=== PATIENT | male | born 1955 | race Caucasian/White ===

== ENCOUNTER 2016-09-07 07:00 | Inpatient (IN) | payer OTHER ==
[~2016-09-07] VITALS: Ht 165.1 cm; Wt 73.3 kg
[2016-10-04 08:44] VITALS: BMI 25.1
[2016-10-05] VITALS (22 sets, daily range): BP systolic 82–145; BP diastolic 53–92; PULSE 59–95; RESP 13–25; Ht 165.1 cm; Wt 73.3 kg
[2016-10-05] MEDS ORDERED: LACTATED RINGER'S 1,000 ML IV* SCH (06:00)
[2016-10-05] MEDS ORDERED: CEFAZOLIN 2 GM/50 ML (PMX) 50 ML IVPB SCH (06:00)
[2016-10-05] MEDS ORDERED: CLON-429 PO (06:27)
[2016-10-05] MEDS ORDERED: SERT50TA PO (06:27)
[2016-10-05] MEDS ORDERED: TRAM50TA2 PO (06:27)
[2016-10-05] MEDS ORDERED: FLUT9.9S NASAL (06:27)
[2016-10-05] MEDS ORDERED: LISI20TA11 PO (06:27)
[2016-10-05 06:49] LABS: BASOPHILS % 0.5 % (0.0-2.0); EOSINOPHILS % 0.8 % (0.0-7.0); HEMATOCRIT 43.5 % (42.0-52.0); HEMOGLOBIN 15.1 g/dl (14.0-18.0); LYMPHOCYTES % 34.5 % (15.0-51.0); MEAN CORPUSCULAR HEMOGLOBIN 32.7 pg (29.0-33.0); MEAN CORPUSCULAR HGB CONC 34.7 g/dl (32.0-37.0); MEAN CORPUSCULAR VOLUME 94.3 fl (82.0-101.0); MEAN PLATELET VOLUME 8.4 fl (7.4-10.4); MONOCYTE # 0.6 10^3/ul (0.3-0.9); MONOCYTES % 9.8 % (0.0-11.0); NEUTROPHIL # 3.2 10^3/ul (1.6-7.5); NEUTROPHILS % 54.4 % (39.0-77.0); PLATELET COUNT 207 10^3/UL (140-440); RED BLOOD COUNT 4.61 10^6/ul (4.70-6.10); RED CELL DISTRIBUTION WIDTH 12.4 % (11.5-14.5); UNCORRECTED WBC 5.9 10^3/ul (4.8-10.8); WHITE BLOOD COUNT 5.9 10^3/ul (4.8-10.8)
[2016-10-05 06:51] LABS: INR 0.91; PROTIME 12.2 Sec (12.2-14.2)
[2016-10-05 06:52] LABS: PARTIAL THROMBOPLASTIN TIME 28.5 Sec (25.0-35.0)
[2016-10-05] MEDS ORDERED: ONDANSETRON 4 MG INJ IV PRN ×2 (07:00→09:00)
[2016-10-05] MEDS ORDERED: CYCLOBENZAPRINE 10 MG TAB PO PRN (07:00)
[2016-10-05] MEDS ORDERED: DIPHENHYDRAMINE 50 MG INJ IV PRN (07:00)
[2016-10-05] MEDS ORDERED: NALOXONE (0.4 MG/ML) INJ IV PRN (07:00)
[2016-10-05] MEDS ORDERED: DIPHENHYDRAMINE 25 MG CAP PO PRN (07:00)
[2016-10-05] MEDS ORDERED: CEPASTAT LOZENGE MT PRN (07:00)
[2016-10-05] MEDS ORDERED: LIDOCAINE 2% (SDV) 5 ML INJ ONE (07:00)
[2016-10-05] MEDS ORDERED: OXYCODONE/ACETAMINOPHEN (10/325) TAB PO PRN (07:00)
[2016-10-05] MEDS ORDERED: PROPOFOL 20 ML ONE (07:00)
[2016-10-05] MEDS ORDERED: CEFAZOLIN 1 GM INJ ONE ×2 (07:00→07:02)
[2016-10-05] MEDS ORDERED: BISACODYL 10 MG SUPP PR PRN (07:00)
[2016-10-05] MEDS ORDERED: AL HYDROX/MG HYDROX/SIMETH 30 ML CUP PO PRN (07:00)
[2016-10-05] MEDS ORDERED: ACETAMINOPHEN 325 MG TAB PO PRN (07:00)
[2016-10-05] MEDS ORDERED: ONDANSETRON 4 MG INJ ONE (07:00)
--- NOTE | 2016-10-05 07:00 | HPN ---
Date/Time of Note Date/Time of Note DATE: 10/05/16 TIME: 07:00 Interval H&P Admission Note Pt. seen H&P reviewed: No system changes MARIFER SANCHEZ MD Oct 05, 2016 07:00
[2016-10-05] MEDS ORDERED: BUPIVACAINE 0.25%/EPI (SDV) 30 ML INJ ONE ×2 (07:02→08:57)
[2016-10-05] MEDS ORDERED: SURGIFOAM POWDER 1 GM KIT ONE ×2 (07:02→08:57)
[2016-10-05] MEDS ORDERED: HEPARIN 1000 UNITS/ML 10 ML INJ ONE (07:02)
[2016-10-05] MEDS ORDERED: GELATIN SIZE 100 SPONGE ONE (07:02)
[2016-10-05] MEDS ORDERED: THROMBIN 5000 UNIT VIAL ONE ×2 (07:02→08:58)
[2016-10-05] MEDS ORDERED: CA CHLORIDE 10% 10 ML SYRINGE ONE (07:02)
[2016-10-05 07:14] LABS: CONDITION 1
[2016-10-05 07:27] LABS: ADD UMIC NO; URINE BILIRUBIN (Dip) NEGATIVE (NEGATIVE); URINE BLOOD (Dip) NEGATIVE (NEGATIVE); URINE COLOR LT. YELLOW (YELLOW); URINE GLUCOSE (Dip) NEGATIVE (NEGATIVE); URINE KETONES (Dip) NEGATIVE (NEGATIVE); URINE LEUKOCYTE ESTERASE (Dip) NEGATIVE (NEGATIVE); URINE NITRITE (Dip) NEGATIVE (NEGATIVE); URINE TOTAL PROTEIN (Dip) NEGATIVE (NEGATIVE); URINE UROBILINOGEN (Dip) 0.2 E.U./dL (0.1-1.0)
[2016-10-05] MEDS ORDERED: HYDROmorphONE 2 MG/ML SYG ONE (07:54)
[2016-10-05] MEDS ORDERED: LABETALOL HCL 20MG INJ ONE (07:54)
[2016-10-05] MEDS ORDERED: ROCURONIUM 50 MG INJ ONE ×2 (08:25→09:04)
[2016-10-05] MEDS ORDERED: FENTAnyl 50 MCG/ML VIAL IV PRN ×2 (09:00)
[2016-10-05] MEDS ORDERED: HYDROmorphONE (0.2 MG/ML) 10ML SYG IV PRN ×3 (09:00)
[2016-10-05] MEDS ORDERED: EPHEDrine SULFATE 50 MG/5 ML SYG IV PRN (09:00)
[2016-10-05] MEDS ORDERED: LABETALOL HCL 20MG INJ IV PRN (09:00)
[2016-10-05] MEDS ORDERED: hydrALAzine 20 MG INJ IV PRN (09:00)
[2016-10-05] MEDS ORDERED: MEPERIDINE 25 MG INJ IV PRN (09:00)
[2016-10-05] MEDS ORDERED: EPHEDrine SULFATE 50 MG/5 ML SYG ONE (09:04)
[2016-10-05] MEDS ORDERED: DEXAMETHASONE 4 MG/ML 1 ML INJ ONE (09:04)
--- NOTE | 2016-10-05 11:04 | OPR ---
DATE OF OPERATION: 10/05/2016 PREOPERATIVE DIAGNOSIS: L5 to S1 degenerative anterolisthesis and stenosis with radiculopathy. POSTOPERATIVE DIAGNOSIS: L5 to S1 degenerative anterolisthesis and stenosis with radiculopathy. PROCEDURE PERFORMED: 1. Anterior lumbar interbody fusion at L5 to S1. 2. Placement of intervertebral biomechanical device with integral screws. 3. Use of allograft. 4. Use of C-arm fluoroscopy with interpretation without radiologist present. 5. Intraoperative neuromonitoring (1 hour 30 minutes). 6. Placement of NuShield device. IMPLANTS: 1. Centinel Stalif anterior lumbar body cage 42 width, 13 height, 12-degree lordosis with screws. 2. Fibergraft. PRIMARY SURGEON: Erasmo Méndez MD COSURGEON: Kris Galvez MD NEED FOR COSURGEON: A cosurgeon was required in order to access the anterior spine. SECOND AIRCRAFT STRUCTURAL REPAIRER: Nelia Chang PA-C. FINDINGS: Neuromonitoring at the start of the case revealed bilateral L5 amplitude down to 40%, liliya ateral S1 amplitude down to 30%. At the end of the case, nerve signals returned to normal. The pat ient had significant disk collapse with listhesis at L5 to S1 with resultant stenosis. ESTIMATED BLOOD LOSS: Per Dr. Galvez. DRAINS: None. SPECIMENS: L5 to S1 disk was sent to pathology. COMPLICATIONS OF PROCEDURE: None. ANESTHESIOLOGIST: Dr. Stewart. TYPE OF ANESTHESIA: General. INDICATIONS FOR PROCEDURE: This is a 60-year-old gentleman with lumbosacral radiculopathy in the se tting of grade I degenerative anterolisthesis and stenosis. He had failed nonoperative measures; th erefore, I recommended proceeding with the above-mentioned surgery. Preoperatively, we discussed th e risks, benefits, and alternatives. He understood and wished to proceed. DESCRIPTION OF PROCEDURE IN DETAIL: The patient was identified in the preoperative holding area, [facility], taken to the operating room, where he was successfully placed under general an esthesia. Neuromonitoring leads were placed, sequential compressive devices were applied, Hampton cat heter was introduced. Neuromonitoring was utilized during this stage of the procedure for 1.5 hours to include SSEP, MEP, and EMG. Start time was 8:00 a.m., closure time was 9:30 a.m. He was placed on the operating table in supine position. All bony prominences were well padded. The abdomen was then prepped and draped in the usual sterile fashion. Arterial line was also placed as was an orog astric tube. Dr. Galvez performed an anterior approach from the left to the spine. He will dictate the approa ch separately. Once he had identified the spine, I placed a bent spinal needle into the L5 to S1 le ana. Once this was placed, I took AP and lateral images to confirm the correct level. Next, I perf ormed a radical diskectomy using curettes, Kerrison punches and pituitary rongeurs. I was able to r educe the spine and improve the alignment. I placed the appropriate size trials and chose the appro priate size graft height. I then took the PEEK cage within which I placed allograft and I impacted the intervertebral biomechanical device into the L5 to S1 level to complete the anterior lumbar inte rbody fusion. I then placed 3 integral screws into the cage. Fibergraft was placed within the cage . Once this was done, I took AP and lateral images and I was happy with placement of the hardware a nd alignment of the spine. Dr. Galvez then placed a NuShield device and proceeded to close the wound in layers and he will d ictate the closure separately. Upon completion, the patient will be transferred to the operating ta ble in prone position for stage 2, which will be dictated separately. There were no apparent compli cations during stage 1. Lap, sponge, and instrument counts were correct x2. Dictated By: ERASMO KRUSE/YANDEL Conf#: [id number] DID#: [id number]
[2016-10-05] MEDS: FENTAnyl 50 MCG/ML VIAL IV PRN ×2 (11:19→11:27)
--- NOTE | 2016-10-05 11:23 | RADRPT ---
PROCEDURE: XR Abdomen. CLINICAL INDICATION: Instrument count. Postop spine surgery. TECHNIQUE: AP supine abdomen x-ray. COMPARISON: Intraoperative lumbar spine radiographs done earlier the same day. FINDINGS: The bowel gas pattern is normal. There is no evidence of obstruction. There are no abnormal calcifications overlying the urinary tracts. There are degenerative changes of the spine. There has been prior lower lumbar spine surgery with h ardware noted. There is a Hampton catheter in the bladder. There is no other abnormal radiopaque for eign body. IMPRESSION: 1. Postoperative changes of the lower lumbar spine. 2. Hampton catheter in the bladder. 3. No other radiopaque foreign body. RPTAT: QQ .Jose Martínez MD, MD Date Time Electronically viewed and signed by .Jose Martínez MD, on 10/05/2016 11:23 .R/
[2016-10-05] MEDS: HYDROmorphONE 0.2 MG/ML PCA IV SCH ×2 (11:32→18:46)
--- NOTE | 2016-10-05 11:54 | OPR ---
DATE OF OPERATION: 10/05/2016 PREOPERATIVE DIAGNOSES: Status post anterior lumbar interbody fusion at L5-S1 for listhesis and stenosis. POSTOPERATIVE DIAGNOSES: Status post anterior lumbar interbody fusion at L5-S1 for listhesis and stenosis. OPERATION PERFORMED: 1. Bilateral pedicle screw placement at L5 and S1. 2. Posterolateral fusion at L5-S1. 3. Bone marrow aspiration from the L5 pedicle and vertebral body. 4. Use of allograft. 5. Intraoperative neuromonitoring (1 hour 15 minutes). IMPLANTS: 1. Pinnacle Lora pedicle screws 6.5 x 40 x 4 45 mm darlin on the left and 45 mm darlin on the right. 2. Allograft sponges. PRIMARY SURGEON: Erasmo Méndez MD REAL TIME ANALYST: JANNETTE Combs NEED FOR MAINTENANCE MECHANIC TECHNICIAN: During this spinal surgical procedure, my executive administrative assistant was used to retract and protect the spinal nerves and dural sac. My executive administrative assistant also employed the suction catheters to evacuate blood from the surgical field to improve visualization of the neural structures. The executive administrative assistant was medically necessary to facilitate the completion of the surgery in a safe and expeditious manner. State of [place] regulations, as well as hospital bylaws, preclude the use of non-licensed health care personnel, such as operating room technicians, to perform these functions. FINDINGS: At the start and the end of the case, nerve signals remained normal. ESTIMATED BLOOD LOSS: Less than 10 mL. DRAINS: None. SPECIMENS: None. COMPLICATIONS OF PROCEDURES: None. ANESTHESIOLOGIST: Dr. Stewart TYPE OF ANESTHESIA: General. INDICATIONS FOR PROCEDURE: This is a 60-year-old gentleman with lumbosacral spondylolisthesis. He completed stage I, which is dictated separately, which was anterior fusion and now presents for stage II. Preoperatively, risks and alternatives were discussed. DESCRIPTION OF PROCEDURE IN DETAIL: After completion of stage I, which is dictated separately, the patient was placed in the operating table in prone position over a Luis frame. All bony prominences were well padded. Neuromonitoring was utilized for this stage of the procedure to include SSEP, MEP, and EMG. This was performed by Receptor. Start time was 10:00 a.m., closure time was 11:15 a.m. The back was prepped, draped in usual sterile fashion. I injected the incision sites with Marcaine and epinephrine. Incision was made parasagittally over the L5 and S1 pedicles. Jamshidi needles were placed. Bone marrow aspiration was performed from the L5 pedicle and vertebral body in the left. Guidewires were then placed followed by the appropriate size pedicle screws bilaterally at L5 and S1. The screws were then stimulated and there was no evidence of cortical breach. I then placed the appropriate sized rods with set screw placement with tightening per manufacture' s specifications. The extension tabs were then removed. I prepared the posterolateral gutters and placed the allograft into the posterolateral region for posterolateral fusion at L5-S1. Once this was done, final AP and lateral images were obtained, and I was happy with placement of hardware and the alignment of the spine. The wound was then copiously irrigated. The deep fascia was closed with #1 Vicryl stitch. I closed subcutaneous tissue with a 2- 0 Vicryl stitch. Dermabond was then applied. The patient was then awakened from anesthesia and taken to recovery in stable condition. Lap, sponge, and instrument counts were correct x2. There were no apparent complications during the procedure. The patient will be admitted to the orthopedic li for routine postoperative care to include pain control, neurovascular checks, antibiotics, and physical therapy. Dictated By: ERASMO KRUSE/YANDEL Conf#: [id number] DID#: [id number] MTDD
--- NOTE | 2016-10-05 13:12 | RADRPT ---
PROCEDURE: Intraoperative fluoroscopy. CLINICAL INDICATION: Intraoperative fluoroscopy during lumbar surgery. TECHNIQUE: 10 spot intraoperative fluoroscopic images were provided. The images were reviewed on a high-resolution PACS workstation. COMPARISON: None available FINDINGS: Multiple spot intraoperative fluoroscopic views were provided during lumbar surgery. The images dem onstrate anterior and subsequent posterior lumbar discectomy and fusion at L5-S1. The total fluoros copy time was 143 seconds. IMPRESSION: 1. Multiple spot intraoperative fluoroscopic views during anterior posterior lumbar discectomy and fusion at L5-S1 were provided. 2. Please see operative report of the same day for further information. RPTAT: HGAS .Patrick Hamilton MD, MD Date Time Electronically viewed and signed by .Patrick Hamilton MD, on 10/05/2016 13:11 .S/
--- NOTE | 2016-10-05 13:13 | RADRPT ---
PROCEDURE: Intraoperative fluoroscopy. CLINICAL INDICATION: Intraoperative fluoroscopy during lumbar fusion. TECHNIQUE: 2 spot intraoperative fluoroscopic images were provided. The images were reviewed on a high-resolution PACS workstation. COMPARISON: None available FINDINGS: Multiple spot intraoperative fluoroscopic views were provided during lumbar fusion. The images demo nstrate anterior lumbar interbody fusion at L5-S1. The total fluoroscopy time was 35.9 seconds. IMPRESSION: 1. Multiple spot intraoperative fluoroscopic views during L5-S1 fusion were provided. 2. Please see operative report of the same day for further information. RPTAT: HGAS .Patrick Hamilton MD, Date Time Electronically viewed and signed by .Patrick Hamilton MD, on 10/05/2016 13:12 .S/
[2016-10-05] MEDS: LISINOPRIL 20 MG TAB PO SCH (13:30)
[2016-10-05] MEDS ORDERED: clonAZEPAM 0.5 MG TAB PO PRN (13:30)
--- NOTE | 2016-10-05 13:39 | CONS ---
DATE OF ADMISSION: 10/05/2016 DATE OF CONSULTATION: 10/05/2016 TYPE OF CONSULTATION: Postoperative REFERRING PHYSICIAN: Erasmo Méndez MD Thank you very much for allowing me to evaluate this 60-year-old male who just underwent lumbar back surgery. HISTORICAL EVENTS: As you well know, the patient was last seen by you in July and at that time elected to proceed with surgical intervention as a prior epidural in February did not provide any relief with respect to low back pain. Postoperatively, he is comfortable without cough, wheezing, shortne ss of breath, nausea, vomiting, abdominal or chest pain. PAST MEDICAL HISTORY: 1. Mood disorder/anxiety and depression. 2. Hypertension. 3. History of hemorrhoids. 4. History of syncope. 5. No history of coronary disease or diabetes. MEDICATIONS: Include: 1. Fluticasone 50 mcg 2 sprays in each nostril daily. 2. Lisinopril 20 mg per day. 3. Ultram 50 mg q.6h. p.r.n. 4. Zoloft 50 mg at night. SOCIAL HISTORY: Does not smoke. He does drink some alcohol. Worked in the [employer] as a [employer]. PHYSICAL EXAMINATION: GENERAL: [place] male in no acute distress. VITAL SIGNS: Blood pressure 92/70, pulse 70, respirations are 20. He was afebrile. EYES: Extraocular muscles were full. NOSE, MOUTH AND THROAT: Normal. NECK: Supple. There was no jugular venous distention, thyroid enlargement or adenopathy. Carotids 2+. LUNGS: Clear. HEART: Rhythm regular. ABDOMEN: Nontender. Liver and spleen were not palpable. No masses or tenderness were noted. EXTREMITIES: No edema. Calves nontender. IMPRESSION: 1. Stable postop lumbar back surgery. 2. History of hypertension. We will continue his DAVIS and observed blood pressures throughout his a dmission. 3. We will observe daily for signs and symptoms of thromboembolic disease. 4. We will pay close attention to his mood disorder. Continue Zoloft at night and Klonopin as need ed. Dictated By: RUSTY SINGH MD MR/NTS Conf#: [id number] DID#: [id number]
[2016-10-05] MEDS: DOCUSATE SODIUM 100 MG CAP PO SCH ×2 (13:46→21:28)
[2016-10-05] MEDS: ASCORBIC ACID 500 MG TAB PO SCH (14:10)
[2016-10-05] MEDS: D5W-0.45 NACL + KCL 20 MEQ 1,000 ML IV SCH ×2 (14:10→16:59)
[2016-10-05] MEDS: CEFAZOLIN 1 GM/50 ML (PMX) 50 ML IVPB SCH ×3 (14:10→23:10)
--- NOTE | 2016-10-05 21:18 | OPR ---
DATE OF OPERATION: PREOPERATIVE DIAGNOSIS: Degenerative disk disease, L5-S1. POSTOPERATIVE DIAGNOSIS: Degenerative disk disease, L5-S1. PROCEDURE: Anterior retroperitoneal exposure and interbody fusion at the level of L5-S1. SURGEON: Kris Galvez MD COSURGEON: Erasmo Sanchez MD INFORMED CONSENT: Risks, benefits, complications, alternative therapies explained to the patient, c onsent obtained. Risks and benefits that were explained to the patient included but not limited to bleeding, infection, damage to the bowel, damage to ureter, wound infection, wound dehiscence, DVT, PE, loss of limb, loss of life, need for further surgeries, sexual dysfunction, erectile dysfunction , and others. All questions answered. OPERATIVE TECHNIQUE: The patient was placed in supine position, prepped, and draped in usual steril e fashion. Timeout was called and we started. I made a 6 cm incision in left lower quadrant, oblique fashion. Incision was taken down to the subc utaneous tissue, which was then opened using electrocautery. Next, the anterior rectus sheath was o pened using electrocautery. Retroperitoneal space was entered subsequently. We then proceeded with the placement of a Bookwalter retractor, which retracted the bowel contents to the right and left r ectus muscle to the left. We did the diskectomy and placement of the new cage. Please refer to Dr. Sanchez's dictation for the details of that operation. After all the x-rays were satisfactory re ad by Dr. Sanchez, the needle count and sponge count was correct. There was no evidence of any bl eeding. The wound was irrigated using antibiotic solution. Anterior rectus sheath was closed using #1 Vicryl suture in running fashion. The wound was irrigated again and closed in 2 layers of 2-0 V icryl suture for subcutaneous, and Steri-Strips for the skin. The patient tolerated procedure well. Dictated By: KRIS GALVEZ MD FM/NTS Conf#: [id number] DID#: [id number] CC: ERASMO SANCHEZ MD;*EndCC*
[2016-10-05] MEDS: SERTRALINE 50 MG TAB PO SCH (21:28)
[2016-10-06] MEDS: D5W-0.45 NACL + KCL 20 MEQ 1,000 ML IV SCH ×2 (01:48→12:59)
[2016-10-06] MEDS: HYDROmorphONE 0.2 MG/ML PCA IV SCH ×4 (04:24→23:57)
[2016-10-06 05:57] LABS: POTASSIUM 4.1 mmol/L (3.5-5.1)
[2016-10-06 06:00] LABS: BASOPHILS % 0.2 % (0.0-2.0); CREATININE 0.93 mg/dl (0.61-1.24); HEMATOCRIT 35.5 % (42.0-52.0); HEMOGLOBIN 12.3 g/dl (14.0-18.0); LYMPHOCYTES % 18.9 % (15.0-51.0); MEAN CORPUSCULAR HEMOGLOBIN 33.2 pg (29.0-33.0); MEAN CORPUSCULAR HGB CONC 34.7 g/dl (32.0-37.0); MEAN CORPUSCULAR VOLUME 95.7 fl (82.0-101.0); MEAN PLATELET VOLUME 9.1 fl (7.4-10.4); MONOCYTE # 1.1 10^3/ul (0.3-0.9); MONOCYTES % 9.9 % (0.0-11.0); NEUTROPHIL # 7.7 10^3/ul (1.6-7.5); PLATELET COUNT 192 10^3/UL (140-440); RED CELL DISTRIBUTION WIDTH 12.8 % (11.5-14.5); UNCORRECTED WBC 10.9 10^3/ul (4.8-10.8); WHITE BLOOD COUNT 10.9 10^3/ul (4.8-10.8)
[2016-10-06] MEDS ORDERED: PANTOPRAZOLE 40 MG INJ IV SCH (06:00)
[2016-10-06 06:01] LABS: CALCIUM 8.9 mg/dl (8.4-10.2)
[2016-10-06 06:25] LABS: CONDITION 1
[2016-10-06 06:55] LABS: ALBUMIN 3.3 g/dl (3.3-4.9)
[2016-10-06 06:58] LABS: BILIRUBIN,INDIRECT 1.1 mg/dl (0-1.1); BILIRUBIN,TOTAL 1.1 mg/dl (0.2-1.3); TOTAL PROTEIN 5.6 g/dl (6.1-8.1)
--- NOTE | 2016-10-06 07:04 | CONS ---
DATE OF ADMISSION: 10/05/2016 DATE OF CONSULTATION: REASON FOR CONSULTATION: Spine disease. Thank you, Dr. Méndez, for asking me to see this patient. HISTORY OF PRESENT ILLNESS: This is a -hfnu-[id number] male with a history of degenerative disk disea se who is being admitted to undergo spine fusion. PAST MEDICAL HISTORY: Hypertension, hyperlipidemia. PAST SURGICAL HISTORY: Bilateral hernia repair with mesh. ALLERGIES: NONE. SOCIAL HISTORY: No smoking, drinking or drug use. MEDICATIONS: List reviewed. PHYSICAL EXAMINATION: VITAL SIGNS: Blood pressure is 136/62, pulse is 80, respirations 18, temperature is 98.2. HEENT: Normocephalic, atraumatic. PERRLA. NECK: Supple. No JVD, no carotid bruits. CARDIOVASCULAR: Normal S1, S2. No murmurs, gallops, rubs ____. ABDOMEN: Soft. EXTREMITIES: Warm. IMPRESSION: Degenerative disease at the level of L5-S1. RECOMMENDATIONS: Will proceed with the anterior retroperitoneal exposure and interbody fusion at th e level of L5-S1. Risks, benefits, complications, alternative therapies explained to the patient an d the family. All questions answered. Risks and benefits that were explained to the patient and th e family included but not limited to bleeding, infection, damage to bowel, damage to ureter, retrogr lynette ejaculation, sexual dysfunction, wound infection, wound dehiscence and others. All questions an swered. Dictated By: LEI JUAREZ MD FM/NTS Conf#: [id number] DID#: [id number]
[2016-10-06 07:35] VITALS: BP 131/70; RESP 19
[2016-10-06] MEDS: ASCORBIC ACID 500 MG TAB PO SCH (08:13)
[2016-10-06] MEDS: DOCUSATE SODIUM 100 MG CAP PO SCH ×2 (08:14→20:41)
[2016-10-06] MEDS: LISINOPRIL 20 MG TAB PO SCH (08:14)
[2016-10-06] MEDS: FLUTICASONE 0.05% 16 GM NAS SPRAY NASAL SCH (08:14)
--- NOTE | 2016-10-06 08:35 | CONS ---
Date/Time of Note Date/Time of Note DATE: 10/06/16 TIME: 08:33 Assessment/Plan Assessment/Plan Additional Assessment/Plan 1. Stable postop lumbar back surgery. 2. History of hypertension, well controlled 3. Mood disorder-anxeity, stable Consultation Date/Type/Reason Admit Date/Time Oct 05, 2016 at 05:23 Initial Consult Date Detailed Summary Respiratory: No shortness of breath Cardiovascular: No chest pain, No lightheadedness Gastrointestinal: other (pablo in place) Musculoskeletal: back pain (moderate) Exam/Review of Systems Vital Signs Vitals Vital Signs Date Time Temp Pulse Resp B/P Pulse Ox O2 Delivery O2 Flow Rate FiO2 10/06/16 07:35 98.0 79 19 131/70 98 10/05/16 15:30 Room Air 2.0 Intake and Output 10/05/16 10/05/16 10/06/16 15:00 23:00 07:00 Intake Total 1650 ml 700 ml 2060 ml Output Total 700 ml 1900 ml Balance 950 ml 700 ml 160 ml Exam Neck: No jvd Respiratory: clear to auscultation Cardiovascular: regular rate and rhythm Gastrointestinal: soft, No hepatomegaly, No splenomegaly Extremities: No edema (and no calf tend) Results Result Diagram: 10/06/16 0415 10/06/16 0415 Results 24 hrs Laboratory Tests Test 10/06/16 04:15 Alanine Aminotransferase (ALT/SGPT) 30 Albumin 3.3 Alkaline Phosphatase 32 L Anion Gap 12 Aspartate Amino Transf (AST/SGOT) 34 Basophils # 0.0 Basophils % 0.2 Blood Urea Nitrogen 11 Calcium Level 8.9 Carbon Dioxide Level 27 Chloride Level 102 Creatinine 0.93 Direct Bilirubin 0.00 Eosinophils # 0.0 Eosinophils % 0.0 Glucose Level 103 Hematocrit 35.5 L Hemoglobin 12.3 L Indirect Bilirubin 1.1 Lymphocytes # 2.0 Lymphocytes % 18.9 Magnesium Level 2.0 Mean Corpuscular Hemoglobin 33.2 H Mean Corpuscular Hemoglobin Concent 34.7 Mean Corpuscular Volume 95.7 Mean Platelet Volume 9.1 Monocytes # 1.1 H Monocytes % 9.9 Neutrophils # 7.7 H Neutrophils % 71.0 Nucleated Red Blood Cells # 0.0 Nucleated Red Blood Cells % 0.0 Platelet Count 192 Potassium Level 4.1 Red Blood Count 3.70 L Red Cell Distribution Width 12.8 Sodium Level 137 Total Bilirubin 1.1 Total Protein 5.6 L White Blood Count 10.9 #H Medications Medications Current Medications Potassium Chloride/Dextrose/ Sod Cl (D5-1/2ns + KCl 20 Meq) 1,000 ml @ 100 mls/ hr Q10H IV Last administered on 10/06/16 01:48; Admin Dose 100 MLS/HR; Start 10/05/16 at 06:59 Oxycodone/ Acetaminophen (Endocet (10/ 325)) 1 tab Q4H PRN PO PAIN LEVEL 1-5; Start 10/05/16 at 07:00 Oxycodone/ Acetaminophen (Endocet (10/ 325)) 2 tab Q4H PRN PO PAIN LEVEL 6-10; Start 10/05/16 at 07:00 Hydromorphone HCl (Dilaudid) 0.2 mg Q1H PRN IV BREAKTHROUGH PAIN; Start at 07:00 Ondansetron HCl (Zofran Inj) 4 mg Q6H PRN IV NAUSEA AND/OR VOMITING; Start at 07:00 Bisacodyl (Dulcolax Supp) 10 mg DAILY PRN [place] CONSTIPATION; Start 10/05/16 at 07 :00 Docusate Sodium (Colace) 100 mg BID PO Last administered on 10/06/16 08:14; Admin Dose 100 MG; Start 10/05/16 at 09:00 Pantoprazole (Protonix Iv) 40 mg DAILY@06 IV Last administered on 10/06/16 05: 41; Admin Dose 40 MG; Start 10/06/16 at 06:00 Al Hydrox/Mg Hydrox/Simethicone (Mag-Al Plus) 15 ml Q6H PRN PO CONSTIPATION/ DYSPEPSIA; Start 10/05/16 at 07:00 Acetaminophen (Tylenol Tab) 650 mg Q4H PRN PO ALVARADO OR TEMP GREATER THAN 101.3F; Start 10/05/16 at 07:00 Ascorbic Acid (Vitamin C) 1,000 mg DAILY PO Last administered on 10/06/16 08: 13; Admin Dose 1,000 MG; Start 10/05/16 at 09:00 Cyclobenzaprine HCl (Flexeril) 10 mg TID PRN PO MUSCLE SPASMS; Start 10/05/16 at 07:00 Phenol (Cepastat Lozenge) 1 lozenge PRN PRN [place] SORE THROAT; Start 10/05/16 at 07:00 Diphenhydramine HCl (Benadryl) 25 mg Q6H PRN PO ITCHING; Start 10/05/16 at 07: 00 Diphenhydramine HCl (Benadryl) 25 mg Q6H PRN IV ITCHING Last administered on 11:27; Admin Dose 25 MG; Start 10/05/16 at 07:00 Naloxone HCl (Narcan) 0.2 mg Q2M PRN IV RR 8 BREATHS/MIN OR LESS; Start at 07:00 Hydromorphone HCl (Dilaudid BRUSHER OPERATOR) BRUSHER OPERATOR to be started in PACU Q4PCA IV Last administered on 10/06/16 04:24; Admin Dose 6 MG; Start 10/05/16 at 07:00 Miscellaneous Information 1. Hold BRUSHER OPERATOR at 1,000... BRUSHER OPERATOR IV ; Start 10/05/16 at 07: 00 Clonazepam (Klonopin) 0.5 mg Q8H PRN PO ANXIETY; Start 10/05/16 at 13:30 Fluticasone Propionate (Flonase 0.05% Nasal) 2 spray DAILY NASAL Last administered on 10/06/16 08:14; Admin Dose 2 SPRAY; Start 10/06/16 at 09:00 Lisinopril (Zestril) 20 mg DAILY PO Last administered on 10/06/16 08:14; Admin Dose 20 MG; Start 10/05/16 at 13:30 Sertraline HCl (Zoloft) 50 mg HS PO Last administered on 10/05/16 21:28; Admin Dose 50 MG; Start 10/05/16 at 21:00 Influenza Virus Vaccine (Fluzone) 0.5 ml ONCE ONCE IM* ; Start 10/07/16 at 09:00 ; Stop 10/07/16 at 09:01 RUSTY SINGH MD Oct 06, 2016 08:35
--- NOTE | 2016-10-06 09:40 | PN ---
Date/Time of Note Date/Time of Note DATE: 10/06/16 TIME: 09:38 Assessment/Plan Lines/Catheters IV Catheter Type (from Nrsg): Peripheral IV Pablo in Place (from Nrsg): Yes Assessment/Plan Assessment/Plan cont PT, ambulate cont pain control routine care anticipate D/C pablo and BROKE HANDLER tomorrow as ordered Subjective 24 Hr Interval Summary c/o LBP denies CP/SOB/calf pain Exam/Review of Systems Vital Signs Vitals Vital Signs Date Time Temp Pulse Resp B/P Pulse Ox O2 Delivery O2 Flow Rate FiO2 10/06/16 07:35 98.0 79 19 131/70 98 10/05/16 15:30 Room Air 2.0 Intake and Output 10/05/16 10/05/16 10/06/16 15:00 23:00 07:00 Intake Total 1650 ml 700 ml 2060 ml Output Total 700 ml 1900 ml Balance 950 ml 700 ml 160 ml Exam Free Text/Dictation NVID calf non tender, no cording, no edema incision C/D/I, abdominal dressing C/D/I Results Result Diagram: 10/06/16 0415 10/06/16 0415 PARVIZ KOHLER PA-C Oct 06, 2016 09:40
[2016-10-06 19:14] VITALS: BP 90/54; RESP 19
[2016-10-06 20:00] VITALS: BP 100/55
[2016-10-06] MEDS: SERTRALINE 50 MG TAB PO SCH (20:41)
[2016-10-07] MEDS: D5W-0.45 NACL + KCL 20 MEQ 1,000 ML IV SCH ×3 (00:02→18:59)
[2016-10-07 05:23] LABS: POTASSIUM 4.9 mmol/L (3.5-5.1)
[2016-10-07 05:25] LABS: CREATININE 0.97 mg/dl (0.61-1.24)
[2016-10-07 05:26] LABS: MAGNESIUM 1.9 mg/dl (1.7-2.5)
[2016-10-07] MEDS: PANTOPRAZOLE (EC) 40 MG TAB PO SCH (05:37)
[2016-10-07 06:05] LABS: BASOPHILS % 0.4 % (0.0-2.0); EOSINOPHILS % 0.3 % (0.0-7.0); HEMOGLOBIN 12.1 g/dl (14.0-18.0); LYMPHOCYTES # 2.2 10^3/ul (0.8-2.9); LYMPHOCYTES % 21.9 % (15.0-51.0); MEAN CORPUSCULAR HEMOGLOBIN 32.9 pg (29.0-33.0); MEAN CORPUSCULAR HGB CONC 34.6 g/dl (32.0-37.0); MEAN CORPUSCULAR VOLUME 95.3 fl (82.0-101.0); MEAN PLATELET VOLUME 8.9 fl (7.4-10.4); MONOCYTE # 1.3 10^3/ul (0.3-0.9); MONOCYTES % 12.5 % (0.0-11.0); NEUTROPHIL # 6.6 10^3/ul (1.6-7.5); NEUTROPHILS % 64.9 % (39.0-77.0); PLATELET COUNT 177 10^3/UL (140-440); RED BLOOD COUNT 3.67 10^6/ul (4.70-6.10); RED CELL DISTRIBUTION WIDTH 12.6 % (11.5-14.5); UNCORRECTED WBC 10.2 10^3/ul (4.8-10.8); WHITE BLOOD COUNT 10.2 10^3/ul (4.8-10.8)
[2016-10-07 06:09] LABS: CONDITION 1
--- NOTE | 2016-10-07 08:06 | PN ---
Date/Time of Note Date/Time of Note DATE: 10/07/16 TIME: 08:05 Assessment/Plan Lines/Catheters IV Catheter Type (from Nrsg): Peripheral IV Hampton in Place (from Nrsg): Yes Assessment/Plan Assessment/Plan Postop day 2 status post ALIF. Patient is progressing nicely. Anticipate discharge next 24 hours. Subjective 24 Hr Interval Summary Complains of pain Exam/Review of Systems Vital Signs Vitals Vital Signs Date Time Temp Pulse Resp B/P Pulse Ox O2 Delivery O2 Flow Rate FiO2 10/07/16 05:00 20 10/06/16 21:30 99.6 10/06/16 20:00 100/55 10/06/16 19:14 98 10/06/16 07:35 79 10/05/16 15:30 Room Air 2.0 Intake and Output 10/06/16 10/06/16 10/07/16 15:00 23:00 07:00 Intake Total 1830 ml 2000 ml Output Total 1500 ml 3000 ml Balance 330 ml -1000 ml Exam Free Text/Dictation Neurovascularly intact Results Result Diagram: 10/07/16 0425 10/07/16 0425 MARIFER SANCHEZ MD Oct 07, 2016 08:06
[2016-10-07 08:15] VITALS: BP 144/85; RESP 19
[2016-10-07] MEDS: HYDROmorphONE 1 MG/ML SYG IV PRN ×5 (08:57→18:30)
[2016-10-07] MEDS: DOCUSATE SODIUM 100 MG CAP PO SCH ×2 (08:57→20:06)
[2016-10-07] MEDS: ASCORBIC ACID 500 MG TAB PO SCH (08:58)
[2016-10-07] MEDS: LISINOPRIL 20 MG TAB PO SCH (08:58)
[2016-10-07] MEDS: FLUTICASONE 0.05% 16 GM NAS SPRAY NASAL SCH (09:00)
[2016-10-07] MEDS ORDERED: INFLUENZA VIRUS VACCINE 0.5 ML SYG IM* ONE (09:00)
--- NOTE | 2016-10-07 12:23 | CONS ---
Date/Time of Note Date/Time of Note DATE: 10/07/16 TIME: 12:21 Assessment/Plan Assessment/Plan Additional Assessment/Plan 1. Doing well post op laminectomy, still with mod pain 2. Mild dysuria and low grade Temp, will ck ua and cult Consultation Date/Type/Reason Admit Date/Time Oct 05, 2016 at 05:23 Detailed Summary Respiratory: No cough, No shortness of breath Cardiovascular: No chest pain Gastrointestinal: other (mod blaoting without n,v) Genitourinary: other (mild dysuria after pablo removed) Exam/Review of Systems Vital Signs Vitals Vital Signs Date Time Temp Pulse Resp B/P Pulse Ox O2 Delivery O2 Flow Rate FiO2 10/07/16 08:15 99.2 97 19 144/85 95 10/05/16 15:30 Room Air 2.0 Intake and Output 10/06/16 10/06/16 10/07/16 15:00 23:00 07:00 Intake Total 1830 ml 2000 ml Output Total 1500 ml 3000 ml Balance 330 ml -1000 ml Exam Neck: No jvd Respiratory: clear to auscultation Cardiovascular: regular rate and rhythm Gastrointestinal: other (sl distended, mild gen tend) Extremities: No edema (and no calf tend) Results Result Diagram: 10/07/16 0425 10/07/16 0425 Results 24 hrs Laboratory Tests Test 10/07/16 04:25 Anion Gap 11 Basophils # 0.0 Basophils % 0.4 Blood Urea Nitrogen 13 Calcium Level 9.0 Carbon Dioxide Level 31 Chloride Level 99 Creatinine 0.97 Eosinophils # 0.0 Eosinophils % 0.3 Glucose Level 102 Hematocrit 35.0 L Hemoglobin 12.1 L Lymphocytes # 2.2 Lymphocytes % 21.9 Magnesium Level 1.9 Mean Corpuscular Hemoglobin 32.9 Mean Corpuscular Hemoglobin Concent 34.6 Mean Corpuscular Volume 95.3 Mean Platelet Volume 8.9 Monocytes # 1.3 H Monocytes % 12.5 H Neutrophils # 6.6 Neutrophils % 64.9 Nucleated Red Blood Cells # 0.0 Nucleated Red Blood Cells % 0.0 Phosphorus Level 2.8 Platelet Count 177 Potassium Level 4.9 Red Blood Count 3.67 L Red Cell Distribution Width 12.6 Sodium Level 136 White Blood Count 10.2 Medications Medications Current Medications Potassium Chloride/Dextrose/ Sod Cl (D5-1/2ns + KCl 20 Meq) 1,000 ml @ 100 mls/ hr Q10H IV Last administered on 10/06/16 12:59; Admin Dose 100 MLS/HR; Start 10/05/16 at 06:59 Oxycodone/ Acetaminophen (Endocet (10/ 325)) 1 tab Q4H PRN PO PAIN LEVEL 1-5; Start 10/05/16 at 07:00 Oxycodone/ Acetaminophen (Endocet (10/ 325)) 2 tab Q4H PRN PO PAIN LEVEL 6-10; Start 10/05/16 at 07:00 Hydromorphone HCl (Dilaudid) 0.2 mg Q1H PRN IV BREAKTHROUGH PAIN Last administered on 10/07/16 10:31; Admin Dose 0.2 MG; Start 10/05/16 at 07:00 Ondansetron HCl (Zofran Inj) 4 mg Q6H PRN IV NAUSEA AND/OR VOMITING; Start at 07:00 Bisacodyl (Dulcolax Supp) 10 mg DAILY PRN [place] CONSTIPATION; Start 10/05/16 at 07 :00 Docusate Sodium (Colace) 100 mg BID PO Last administered on 10/07/16 08:57; Admin Dose 100 MG; Start 10/05/16 at 09:00 Al Hydrox/Mg Hydrox/Simethicone (Mag-Al Plus) 15 ml Q6H PRN PO CONSTIPATION/ DYSPEPSIA; Start 10/05/16 at 07:00 Acetaminophen (Tylenol Tab) 650 mg Q4H PRN PO ALVARADO OR TEMP GREATER THAN 101.3F Last administered on 10/06/16 20:41; Admin Dose 650 MG; Start 10/05/16 at 07:00 Ascorbic Acid (Vitamin C) 1,000 mg DAILY PO Last administered on 10/07/16 08: 58; Admin Dose 1,000 MG; Start 10/05/16 at 09:00 Cyclobenzaprine HCl (Flexeril) 10 mg TID PRN PO MUSCLE SPASMS; Start 10/05/16 at 07:00 Phenol (Cepastat Lozenge) 1 lozenge PRN PRN [place] SORE THROAT; Start 10/05/16 at 07:00 Diphenhydramine HCl (Benadryl) 25 mg Q6H PRN PO ITCHING; Start 10/05/16 at 07: 00 Diphenhydramine HCl (Benadryl) 25 mg Q6H PRN IV ITCHING Last administered on 11:27; Admin Dose 25 MG; Start 10/05/16 at 07:00 Naloxone HCl (Narcan) 0.2 mg Q2M PRN IV RR 8 BREATHS/MIN OR LESS; Start at 07:00 Hydromorphone HCl (Dilaudid DRYING UNIT FELTING MACHINE OPERATOR) DRYING UN[employer] FELTING MACHINE OPERATOR to be started in PACU Q4PCA IV Last administered on 10/06/16 23:57; Admin Dose 6 MG; Start 10/05/16 at 07:00 Miscellaneous Information 1. Hold DRYING UNIT FELTING MACHINE OPERATOR at 1,000... DRYING UNIT FELTING MACHINE OPERATOR IV ; Start 10/05/16 at 07: 00 Clonazepam (Klonopin) 0.5 mg Q8H PRN PO ANXIETY; Start 10/05/16 at 13:30 Fluticasone Propionate (Flonase 0.05% Nasal) 2 spray DAILY NASAL Last administered on 10/06/16 08:14; Admin Dose 2 SPRAY; Start 10/06/16 at 09:00 Lisinopril (Zestril) 20 mg DAILY PO Last administered on 10/07/16 08:58; Admin Dose 20 MG; Start 10/05/16 at 13:30 Sertraline HCl (Zoloft) 50 mg HS PO Last administered on 10/06/16 20:41; Admin Dose 50 MG; Start 10/05/16 at 21:00 Pantoprazole (Protonix Tab) 40 mg DAILY@06 PO Last administered on 10/07/16 05 :37; Admin Dose 40 MG; Start 10/07/16 at 06:00 RUSTY SINGH MD Oct 07, 2016 12:23
[2016-10-07] MEDS: OXYCODONE/ACETAMINOPHEN (10/325) TAB PO PRN ×2 (14:10→20:06)
[2016-10-07 19:20] VITALS: BP 109/52; RESP 19
[2016-10-07] MEDS: SERTRALINE 50 MG TAB PO SCH (20:06)
[2016-10-08] MEDS: OXYCODONE/ACETAMINOPHEN (10/325) TAB PO PRN ×4 (00:06→13:19)
[2016-10-08] MEDS: PANTOPRAZOLE (EC) 40 MG TAB PO SCH (04:17)
[2016-10-08] MEDS: D5W-0.45 NACL + KCL 20 MEQ 1,000 ML IV SCH (04:59)
[2016-10-08 05:37] LABS: BASOPHILS % 0.5 % (0.0-2.0); EOSINOPHILS # 0.1 10^3/ul (0.0-0.5); EOSINOPHILS % 1.2 % (0.0-7.0); HEMATOCRIT 34.5 % (42.0-52.0); HEMOGLOBIN 11.7 g/dl (14.0-18.0); LYMPHOCYTES # 2.1 10^3/ul (0.8-2.9); LYMPHOCYTES % 28.9 % (15.0-51.0); MEAN CORPUSCULAR HEMOGLOBIN 32.8 pg (29.0-33.0); MEAN CORPUSCULAR HGB CONC 33.9 g/dl (32.0-37.0); MEAN CORPUSCULAR VOLUME 96.8 fl (82.0-101.0); MEAN PLATELET VOLUME 8.9 fl (7.4-10.4); MONOCYTE # 0.9 10^3/ul (0.3-0.9); MONOCYTES % 13.1 % (0.0-11.0); NEUTROPHILS % 56.3 % (39.0-77.0); PLATELET COUNT 170 10^3/UL (140-440); RED BLOOD COUNT 3.57 10^6/ul (4.70-6.10); RED CELL DISTRIBUTION WIDTH 12.5 % (11.5-14.5); UNCORRECTED WBC 7.1 10^3/ul (4.8-10.8); WHITE BLOOD COUNT 7.1 10^3/ul (4.8-10.8)
[2016-10-08 05:42] LABS: CONDITION 1
[2016-10-08 06:18] LABS: POTASSIUM 4.9 mmol/L (3.5-5.1)
[2016-10-08 06:21] LABS: CREATININE 0.88 mg/dl (0.61-1.24)
[2016-10-08 06:22] LABS: MAGNESIUM 2.2 mg/dl (1.7-2.5)
[2016-10-08 07:30] VITALS: BP 119/65; RESP 18
[2016-10-08] MEDS: LISINOPRIL 20 MG TAB PO SCH (08:26)
[2016-10-08] MEDS: FLUTICASONE 0.05% 16 GM NAS SPRAY NASAL SCH (08:26)
[2016-10-08] MEDS: DOCUSATE SODIUM 100 MG CAP PO SCH (08:30)
[2016-10-08] MEDS: ASCORBIC ACID 500 MG TAB PO SCH (08:30)
--- NOTE | 2016-10-08 08:46 | CONS ---
Date/Time of Note Date/Time of Note DATE: 10/08/16 TIME: 08:44 Assessment/Plan Assessment/Plan Additional Assessment/Plan 1. Stable postop lumbar back surgery. 2. History of hypertension, and now well controlled 3. We will pay close attention to his mood disorder,stable 4. OK to dc per ortho and PT Consultation Date/Type/Reason Admit Date/Time Oct 05, 2016 at 05:23 Detailed Summary Respiratory: No cough, No shortness of breath Cardiovascular: No chest pain Gastrointestinal: no complaints, other (mild periumbilical abd pain, no bm yet without c/o n or v) Musculoskeletal: back pain (mild-mod but better then yesterday) Exam/Review of Systems Vital Signs Vitals Vital Signs Date Time Temp Pulse Resp B/P Pulse Ox O2 Delivery O2 Flow Rate FiO2 10/08/16 07:30 97.9 66 18 119/65 92 10/05/16 15:30 Room Air 2.0 Intake and Output 10/07/16 10/07/16 10/08/16 15:00 23:00 07:00 Intake Total 2000 ml 850 ml Output Total 1500 ml Balance 500 ml 850 ml Exam Neck: No jvd Respiratory: clear to auscultation Cardiovascular: regular rate and rhythm Gastrointestinal: distended (mild and sl tenderness, periumbilical) Extremities: No edema (and no calf tend) Results Result Diagram: 10/08/16 0415 10/08/16 0415 Results 24 hrs Laboratory Tests Test 10/08/16 04:15 Anion Gap 13 Basophils # 0.0 Basophils % 0.5 Blood Urea Nitrogen 12 Calcium Level 9.0 Carbon Dioxide Level 32 H Chloride Level 100 Creatinine 0.88 Eosinophils # 0.1 Eosinophils % 1.2 Glucose Level 96 Hematocrit 34.5 L Hemoglobin 11.7 L Lymphocytes # 2.1 Lymphocytes % 28.9 Magnesium Level 2.2 Mean Corpuscular Hemoglobin 32.8 Mean Corpuscular Hemoglobin Concent 33.9 Mean Corpuscular Volume 96.8 Mean Platelet Volume 8.9 Monocytes # 0.9 Monocytes % 13.1 H Neutrophils # 4.0 Neutrophils % 56.3 Nucleated Red Blood Cells # 0.0 Nucleated Red Blood Cells % 0.0 Platelet Count 170 Potassium Level 4.9 Red Blood Count 3.57 L Red Cell Distribution Width 12.5 Sodium Level 140 White Blood Count 7.1 # Medications Medications Current Medications Potassium Chloride/Dextrose/ Sod Cl (D5-1/2ns + KCl 20 Meq) 1,000 ml @ 100 mls/ hr Q10H IV Last administered on 10/06/16 12:59; Admin Dose 100 MLS/HR; Start 10/05/16 at 06:59 Oxycodone/ Acetaminophen (Endocet (10/ 325)) 1 tab Q4H PRN PO PAIN LEVEL 1-5; Start 10/05/16 at 07:00 Oxycodone/ Acetaminophen (Endocet (10/ 325)) 2 tab Q4H PRN PO PAIN LEVEL 6-10 Last administered on 10/08/16 08:28; Admin Dose 2 TAB; Start 10/05/16 at 07:00 Hydromorphone HCl (Dilaudid) 0.2 mg Q1H PRN IV BREAKTHROUGH PAIN Last administered on 10/07/16 18:30; Admin Dose 0.2 MG; Start 10/05/16 at 07:00 Ondansetron HCl (Zofran Inj) 4 mg Q6H PRN IV NAUSEA AND/OR VOMITING; Start at 07:00 Bisacodyl (Dulcolax Supp) 10 mg DAILY PRN [place] CONSTIPATION; Start 10/05/16 at 07 :00 Docusate Sodium (Colace) 100 mg BID PO Last administered on 10/08/16 08:30; Admin Dose 100 MG; Start 10/05/16 at 09:00 Al Hydrox/Mg Hydrox/Simethicone (Mag-Al Plus) 15 ml Q6H PRN PO CONSTIPATION/ DYSPEPSIA Last administered on 10/07/16 15:39; Admin Dose 15 ML; Start at 07:00 Acetaminophen (Tylenol Tab) 650 mg Q4H PRN PO ALVARADO OR TEMP GREATER THAN 101.3F Last administered on 10/06/16 20:41; Admin Dose 650 MG; Start 10/05/16 at 07:00 Ascorbic Acid (Vitamin C) 1,000 mg DAILY PO Last administered on 10/08/16 08: 30; Admin Dose 1,000 MG; Start 10/05/16 at 09:00 Cyclobenzaprine HCl (Flexeril) 10 mg TID PRN PO MUSCLE SPASMS; Start 10/05/16 at 07:00 Phenol (Cepastat Lozenge) 1 lozenge PRN PRN [place] SORE THROAT; Start 10/05/16 at 07:00 Diphenhydramine HCl (Benadryl) 25 mg Q6H PRN PO ITCHING; Start 10/05/16 at 07: 00 Diphenhydramine HCl (Benadryl) 25 mg Q6H PRN IV ITCHING Last administered on 11:27; Admin Dose 25 MG; Start 10/05/16 at 07:00 Naloxone HCl (Narcan) 0.2 mg Q2M PRN IV RR 8 BREATHS/MIN OR LESS; Start at 07:00 Hydromorphone HCl (Dilaudid AIR TRAFFIC INSTRUCTOR) AIR TRAFFIC INSTRUCTOR to be started in PACU Q4PCA IV Last administered on 10/06/16 23:57; Admin Dose 6 MG; Start 10/05/16 at 07:00 Miscellaneous Information 1. Hold AIR TRAFFIC INSTRUCTOR at 1,000... AIR TRAFFIC INSTRUCTOR IV ; Start 10/05/16 at 07: 00 Clonazepam (Klonopin) 0.5 mg Q8H PRN PO ANXIETY; Start 10/05/16 at 13:30 Fluticasone Propionate (Flonase 0.05% Nasal) 2 spray DAILY NASAL Last administered on 10/06/16 08:14; Admin Dose 2 SPRAY; Start 10/06/16 at 09:00 Lisinopril (Zestril) 20 mg DAILY PO Last administered on 10/07/16 08:58; Admin Dose 20 MG; Start 10/05/16 at 13:30 Sertraline HCl (Zoloft) 50 mg HS PO Last administered on 10/07/16 20:06; Admin Dose 50 MG; Start 10/05/16 at 21:00 Pantoprazole (Protonix Tab) 40 mg DAILY@06 PO Last administered on 10/08/16 04 :17; Admin Dose 40 MG; Start 10/07/16 at 06:00 RUSTY SINGH MD Oct 08, 2016 08:46
--- NOTE | 2016-10-08 08:46 | DS ---
DATE OF ADMISSION: 10/05/2016 DATE OF DISCHARGE: 10/08/2016 ADMITTING DIAGNOSIS: L5-S1 anterolisthesis. FINAL DIAGNOSES: L5-S1 anterolisthesis. PROCEDURE: The patient was taken to the operating room on October 05, underwent lumbosacral fusi on. HOSPITAL COURSE: The patient was admitted to the orthopedic li after undergoing the above procedu res. Postoperative course was uncomplicated. By postop day 3, he was deemed stable for discharge w ith followup arranged with the undersigned. Dictated By: MARIFER KRUSE/YANDEL Conf#: [id number] DID#: [id number]
== END 2016-10-08 13:30 | disposition home or self-care (01) | DRG 455 ==
LOC: REC 10-05 05:23 → MS1 10-05 12:18
PROVIDERS: ADMIT Specialist; ATTEND Specialist
PROC: 0SG30K1 Fusion of Lumbosacral Joint with Nonautologous Tissue Substitute, Posterior Approach, Posterior Column, Open Approach (ICD-10-PCS; 2016-10-05)
PROC: 0ST40ZZ Resection of Lumbosacral Disc, Open Approach (ICD-10-PCS; 2016-10-05)
PROC: 07DS3ZZ Extraction of Vertebral Bone Marrow, Percutaneous Approach (ICD-10-PCS; 2016-10-05)
PROC: 0SG30A0 Fusion of Lumbosacral Joint with Interbody Fusion Device, Anterior Approach, Anterior Column, Open Approach (ICD-10-PCS; principal; 2016-10-05 07:00)
DX: M43.16 Spondylolisthesis, lumbar region (principal); I10 Essential (primary) hypertension; M48.06 Spinal stenosis, lumbar region; M54.17 Radiculopathy, lumbosacral region; F32.9 Major depressive disorder, single episode, unspecified; R30.0 Dysuria
CPT/HCPCS: 72100; 72114; 74000; 80048; 80076; 81003; 83735; 84100; 85025; 85610; 85730; 86850; 86900; 86901; 86920; 86999; 87086; 90686; 97116; 97163; 97530; C1713; C9113; J0690; J1100; J1170; J1200; J1644; J2405; J3010; J3480; V2790